=== PATIENT | female | born 2000 | race African-American/Black ===

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

== ENCOUNTER 2025-01-10 23:16 | Emergency (ER) | payer MEDICAID ==
[~2025-01-10] VITALS: Ht 172.7 cm; Wt 90.9 kg
[2025-01-10 23:30] VITALS: BP 106/70; PULSE 102; RESP 18; TEMP 98.6; O2SAT 100
== END 2025-01-11 | disposition left against medical advice (07) ==
LOC: EMS 23:17
DX: F10.129 Alcohol abuse with intoxication, unspecified (principal); Z53.21 Procedure and treatment not carried out due to patient leaving prior to being seen by health care provider; Y90.9 Presence of alcohol in blood, level not specified
CPT/HCPCS: 99281; Z7502